=== PATIENT | female | born 2000 | race Caucasian/White ===

== ENCOUNTER 2024-05-17 16:30 | Observation (INO) | payer OTHER ==
[2024-05-17 14:37] LABS: Appearance Cloudy (Clear); Bilirubin Moderate (Negative); Blood Negative (Negative); Glucose, Urine Negative (Negative); Ketones 80 (Negative); Leukocyte Esterase Negative (Negative); Nitrite Negative (Negative); Ph 5.5 (4.6-8.0); Protein,Urine Dip 100 (Negative); Specific Gravity >=1.030 (1.005-1.030)
--- NOTE | 2024-05-17 14:37 | ERPHSYRPT ---
- History of Present Illness Time Seen by Provider: 05/17/24 14:24 Source: patient Exam Limitations: no limitations Patient Subjective Stated Complaint: C/O right sided abdominal pain with N/V and diarrhea for 3 days Triage Nursing Assessment: Patient ambulated back to ER. Patient states she already gave a urine specimen in the [facility] prior to coming to the ER today so she is unable to give a sample now. Lab phoned to send ER the results. P atient is alert and oriented. No SOB. Skin tone normal. ADIA WNL. Physician History: Patient here with right lower quadrant pain. Has been going on for 2 days. No falls or trauma. Patient's does have COVID. No fever no chills here. Patient is taking PO well. Same number of urinations and defecations. The patient has no signs of altered mental status, nuchal rigidity, signs of meningitis. The patient is up-to-date on all vaccinations. She has not tried thing to make it better or worse. Allergies/Adverse Reactions: No Known Drug Allergies Allergy (Verified 05/17/24 14:17) Home Medications: Enalapril Maleate [Vasotec] 5 mg PO HS 05/17/24 [History] Fluoxetine HCl [Prozac] 20 mg PO HS 05/17/24 [History] Norgestimate-Ethinyl Estradiol [Tri-Estarylla Tablet] 1 tab PO HS 05/17/24 [History] Tirzepatide [Zepbound] 7.5 mg SQ WEEKLY 05/17/24 [History] Hx Tetanus, Diphtheria Vaccination/Date Given: Yes Hx Influenza Vaccination/Date Given: Yes Immunizations Up to Date: Yes Travel Risk - International Travel Have you traveled outside of the country in past 3 weeks: No - Emerging Infectious Disease Are you exhibiting symptoms associated with any current EIDs: Yes Symptoms: Diarrhea, Vomitting Comment: at home + for COVID - Past Medical History Pertinent Past Medical History: Yes Cardiac History: Hypertension GI Medical History: Gallbladder Disease Psycho-Social History: Depression - Past Surgical History Past Surgical History: Yes Gastrointestinal: Cholecystectomy Other Surgical History: wisdom teeth - Female History Hx Last Menstrual Period: One month; due to start in 3 days Hx Now: No - Social History Smoking Status: Never smoker Exposure to second hand smoke: No Drug Use: none - Social Determinants of Health Will the patient participate in the screening: Yes Do you worry about a steady place to live?: No Do you have any problems with any of the following?: No known problems In the past 12 months,have you had to go without utilities?: No Transportation Issues: No Has anyone in your support network made you feel unsafe?: No Have you or anyone in your house had to go without enough: No - Nursing Vital Signs Nursing Vital Signs: Initial Vital Signs Temperature 97.6 F 05/17/24 14:20 Pulse Rate 104 H 05/17/24 14:20 Respiratory Rate 24 05/17/24 14:20 Blood Pressure 173/97 05/17/24 14:20 O2 Sat by Pulse Oximetry 100 05/17/24 14:20 Pain Scale Pain Intensity 2 - Physical Exam SpO2: 100 Comments: 05/17/24 14:36 Review of Systems Constitutional: Negative for fever. HENT: Negative for congestion. Respiratory: Negative for shortness of breath. Cardiovascular: Negative for chest pain. Gastrointestinal: Abdominal pain, nausea, vomiting Genitourinary: Negative for dysuria. Musculoskeletal: Negative for back pain. Skin: Negative for rash. Neurological: Negative for headaches. Psychiatric/Behavioral: Negative for behavioral problems. All other systems reviewed and are negative. Physical Exam Vitals signs and nursing note reviewed. Constitutional: Appearance: Patient is well-developed. HENT: Head: Normocephalic and atraumatic. Eyes: Conjunctiva/sclera: Conjunctivae normal. Neck: Musculoskeletal: Normal range of motion. Trachea: No tracheal deviation. Cardiovascular: Rate and Rhythm: Normal rate. Pulmonary: Effort: Pulmonary effort is normal. No respiratory distress. Abdominal: Palpations: Abdomen is soft. Patient has tenderness diffusely without rebound or guarding, specifically worse in the right lower quadrant Musculoskeletal: General: No deformity. Skin: General: Skin is warm and dry. Neurological/ Psychiatric: Mental Status: Mental status, behavior, interaction with environment is appropriate for patient's age and condition - Course Nursing assessment & vital signs reviewed: Yes Ordered Tests: Active Orders 24 hr Category Date Time Status Call Admit Doctor for Orders ON ADMISSION Care 05/17/24 16:06 Active Code Status Order ROUTINE Care 05/17/24 16:06 Active IV Insertion STAT Care 05/17/24 14:[address] in Observation ROUTINE Care 05/17/24 16:06 Active NPO Diet 05/17/24 16:06 Active ABDOMEN AND PELVIS W CONTRAST [CT] Stat Exams 05/17/24 14:33 Completed CBC W DIFF Stat Lab 05/17/24 14:49 Completed CMP Stat Lab 05/17/24 14:49 Completed HCG QUALITATIVE, URINE Stat Lab 05/17/24 14:30 Completed LIPASE Stat Lab 05/17/24 14:49 Completed UA W/RFX UR CULTURE Stat Lab 05/17/24 14:31 Completed Medication Summary Discontinued Medications Generic Name Dose Route Start Last Admin Trade Name Ino PRN Reason Stop Dose Admin Acetaminophen 975 mg 05/17/24 14:33 05/17/24 14:41 Acetaminophen 325 Mg Tablet PO 05/17/24 14:34 975 mg STAT ONE Administration Acetaminophen Confirm 05/17/24 14:36 Acetaminophen 325 Mg Tablet Administered 05/17/24 14:37 Dose 975 mg .ROUTE .STK-MED ONE Bupivacaine HCl Confirm 05/17/24 16:04 Bupivacaine Hcl 2.5 Mg/Ml 10 Ml Administered 05/17/24 16:05 Dose 10 ml .ROUTE .STK-MED ONE Sodium Chloride 1,000 mls @ 999 mls/hr 05/17/24 14:33 05/17/24 15:43 Sodium Chloride 0.9% 1000 Ml IV 05/17/24 15:33 Infused .Q1H1M STA Infusion Sodium Chloride Confirm 05/17/24 14:36 Sodium Chloride 0.9% 1000 Ml Administered 05/17/24 14:37 Dose 1,000 mls @ ud .ROUTE .STK-MED ONE Piperacillin Sod/Tazobactam 100 mls @ 200 mls/hr 05/17/24 15:24 05/17/24 15:28 Sod 4.5 gm/ Sodium Chloride IV 05/17/24 15:53 200 mls/hr STAT ONE Administration Sodium Chloride Confirm 05/17/24 15:28 Sodium Chloride 100ml Mini-Bag Plus Administered 05/17/24 15:29 Dose 100 mls @ ud IV .STK-MED ONE Ketorolac Tromethamine 30 mg 05/17/24 14:33 05/17/24 14:41 Ketorolac Tromethamine 30 Mg/Ml Inj IV 05/17/24 14:34 30 mg STAT ONE Administration Ketorolac Tromethamine Confirm 05/17/24 14:36 Ketorolac Tromethamine 30 Mg/Ml Inj Administered 05/17/24 14:37 Dose 30 mg .ROUTE .STK-MED ONE Ondansetron HCl 4 mg 05/17/24 14:33 05/17/24 14:40 Ondansetron Hcl 4 Mg/2 Ml Vial IV 05/17/24 14:34 4 mg STAT ONE Administration Ondansetron HCl Confirm 05/17/24 14:36 Ondansetron Hcl 4 Mg/2 Ml Vial Administered 05/17/24 14:37 Dose 4 mg .ROUTE .STK-MED ONE Piperacillin Sod/Tazobactam Sod Confirm 05/17/24 15:28 Piperacillin/Tazobactam Sodium 4.5 Gm Vial Administered 05/17/24 15:29 Dose 4.5 gm IV .STK-MED ONE Lab/Rad Data: Laboratory Result Diagrams 05/17/24 14:49 05/17/24 14:49 Laboratory Results 05/17/24 05/17/24 05/17/24 Range/Units 14:49 14:49 14:49 WBC 9.7 (3.98-10.04) x10^3/uL RBC 4.91 (3.93-5.22) x10^6/uL Hgb 13.8 (11.2-15.7) g/dL Hct 41.5 (34.1-44.9) % MCV 84.5 (79.4-94.8) fL MCH 28.1 (25.6-32.2) pg MCHC 33.3 (32.2-35.5) g/dL RDW 13.0 (11.7-14.4) % Plt Count 266 (182-369) x10^3/uL MPV 11.0 (9.4-12.3) fL Gran % 77.7 H (34.0-71.1) % Immature Gran % (Auto) 0.2 (0.001-0.429) % Nucleat RBC Rel Count 0.0 (0.00-0.2) % Eos # (Auto) 0.04 (0.04-0.36) x10^3/uL Immature Gran # (Auto) 0.02 (0.001-0.031) x10^3u/L Absolute Lymphs (auto) 1.70 (1.18-3.74) x10^3/uL Absolute Monos (auto) 0.36 (0.24-0.86) x10^3/uL Absolute Nucleated RBC 0.00 (0.00-0.012) x10^3u/L Lymphocytes % 17.6 L (19.3-51.7) % Monocytes % 3.7 L (4.7-12.5) % Eosinophils % 0.4 L (0.7-5.8) % Basophils % 0.4 (0.1-1.2) % Absolute Granulocytes 7.52 H (1.56-6.13) x10^3/uL Basophils # 0.04 (0.01-0.08) x10^3/uL Sodium 134 L (135-145) mmol/L Potassium 3.6 (3.5-5.1) mmol/L Chloride 102 (98-107) mmol/L Carbon Dioxide 19 L (22-30) mmol/L Anion Gap 15.9 H (5-15) MEQ/L BUN 14 (7-17) mg/dL Creatinine 0.88 (0.52-1.04) mg/dL Estimated GFR 94.1 ML/MIN Glucose 69 L (74-106) mg/dL Calcium 8.8 (8.4-10.2) mg/dL Total Bilirubin 0.70 (0.2-1.3) mg/dL AST 33 (14-36) U/L ALT 37 H (0-35) U/L Alkaline Phosphatase 83 (38-126) U/L Serum Total Protein 7.1 (6.3-8.2) g/dL Albumin 4.0 (3.5-5.0) g/dL Lipase 82 (23-300) U/L Urine Color (Yellow) Urine Appearance (Clear) Urine pH (4.6-8.0) Ur Specific Kiefer (1.005-1.030) Urine Protein (Negative) Urine Glucose (UA) (Negative) mg/dL Urine Ketones (Negative) Urine Blood (Negative) Urine Nitrite (Negative) Urine Bilirubin (Negative) Urine Urobilinogen (0.2) mg/dL Ur Leukocyte Esterase (Negative) U Hyaline Cast (Auto) (0-2) /LPF Urine Microscopic RBC (0-5) /HPF Urine Microscopic WBC (0-5) /HPF Ur Epithelial Cells (None Seen) /HPF Urine Bacteria (None Seen) /HPF Urine Culture Reflexed (NO) Urine HCG, Qual (NEGATIVE) Influenza Type A Ag NEGATIVE (NEGATIVE) Influenza Type B Ag NEGATIVE (NEGATIVE) RSV (PCR) NEGATIVE (NEGATIVE) SARS-CoV-2 (PCR) NEGATIVE (NEGATIVE) 05/17/24 05/17/24 Range/Units 14:31 14:30 WBC (3.98-10.04) x10^3/uL RBC (3.93-5.22) x10^6/uL Hgb (11.2-15.7) g/dL Hct (34.1-44.9) % MCV (79.4-94.8) fL MCH (25.6-32.2) pg MCHC (32.2-35.5) g/dL RDW (11.7-14.4) % Plt Count (182-369) x10^3/uL MPV (9.4-12.3) fL Gran % (34.0-71.1) % Immature Gran % (Auto) (0.001-0.429) % Nucleat RBC Rel Count (0.00-0.2) % Eos # (Auto) (0.04-0.36) x10^3/uL Immature Gran # (Auto) (0.001-0.031) x10^3u/L Absolute Lymphs (auto) (1.18-3.74) x10^3/uL Absolute Monos (auto) (0.24-0.86) x10^3/uL Absolute Nucleated RBC (0.00-0.012) x10^3u/L Lymphocytes % (19.3-51.7) % Monocytes % (4.7-12.5) % Eosinophils % (0.7-5.8) % Basophils % (0.1-1.2) % Absolute Granulocytes (1.56-6.13) x10^3/uL Basophils # (0.01-0.08) x10^3/uL Sodium (135-145) mmol/L Potassium (3.5-5.1) mmol/L Chloride (98-107) mmol/L Carbon Dioxide (22-30) mmol/L Anion Gap (5-15) MEQ/L BUN (7-17) mg/dL Creatinine (0.52-1.04) mg/dL Estimated GFR ML/MIN Glucose (74-106) mg/dL Calcium (8.4-10.2) mg/dL Total Bilirubin (0.2-1.3) mg/dL AST (14-36) U/L ALT (0-35) U/L Alkaline Phosphatase (38-126) U/L Serum Total Protein (6.3-8.2) g/dL Albumin (3.5-5.0) g/dL Lipase (23-300) U/L Urine Color Dark Yellow A (Yellow) Urine Appearance Cloudy A (Clear) Urine pH 5.5 (4.6-8.0) Ur Specific Kiefer >=1.030 A (1.005-1.030) Urine Protein 100 A (Negative) Urine Glucose (UA) Negative (Negative) mg/dL Urine Ketones 80 A (Negative) Urine Blood Negative (Negative) Urine Nitrite Negative (Negative) Urine Bilirubin Moderate A (Negative) Urine Urobilinogen 1.0 A (0.2) mg/dL Ur Leukocyte Esterase Negative (Negative) U Hyaline Cast (Auto) 3-5 A (0-2) /LPF Urine Microscopic RBC 0-2 (0-5) /HPF Urine Microscopic WBC 3-5 (0-5) /HPF Ur Epithelial Cells Moderate A (None Seen) /HPF Urine Bacteria Rare A (None Seen) /HPF Urine Culture Reflexed ORDERED SEPARATELY (NO) Urine HCG, Qual NEGATIVE (NEGATIVE) Influenza Type A Ag (NEGATIVE) Influenza Type B Ag (NEGATIVE) RSV (PCR) (NEGATIVE) SARS-CoV-2 (PCR) (NEGATIVE) - Progress Progress: improved Progress Note: 05/17/24 14:37 Differential diagnosis includes kidney stone, compression fracture, infection, UTI, triple AAA - basic labs including: CBC, lipase, CMP, UA, urine - insert IV for symptom management - consider imaging: CT ab/pelvis or U/S Reevaluation Patient feels improved with medication. 05/17/24 16:13 Patient found to have acute appendicitis on CT scan. This is in line with her physical exam. I discussed over the phone with on-call general surgeon, Dr. Burris. She did request that we admit to the hospital team given patient's history of hypertension. Plan to take to the OR today. We did write for Zosyn here. Discussed over the phone with on-call hospitalist, Dr. Kaye. He did accept the patient to admission to the service. Counseled pt/family regarding: lab results, diagnosis, need for follow-up, rad results - Departure Departure Disposition: Observation Clinical Impression: Acute appendicitis Condition: Stable Critical Care Time: No Referrals: MENDY MARTIN, DESIGN/ANIMATION INSTRUCTOR [Primary Care Provider] - Follow up/PCP as directed
[2024-05-17 14:38] LABS: HCG URINE TEST NEGATIVE (NEGATIVE)
[2024-05-17] MEDS: Zofran 4 MG/2 ML VIAL IV ONE (14:40)
[2024-05-17] MEDS: Sodium Chloride 0.9% 1000 ML 1,000 ML IV STA (14:40)
[2024-05-17] MEDS: TYLENOL 325 MG PO ONE (14:41)
[2024-05-17] MEDS: TORAdol 30 mg Injection IV ONE (14:41)
[2024-05-17 14:52] LABS: ADD URINE CULTURE? ORDERED SEPARATELY (NO); Bacteria Rare /HPF (None Seen); Epithelial Cells Moderate /HPF (None Seen); RBC 0-2 /HPF (0-5)
[2024-05-17 14:57] LABS: Absolute Neutrophil Ct (ANC) 7.52 x10^3/uL (1.56-6.13); BASOPHIL % 0.4 % (0.1-1.2); Basophil (Absolute #) 0.04 x10^3/uL (0.01-0.08); Eosinophil % 0.4 % (0.7-5.8); Eosinophil (Absolute #) 0.04 x10^3/uL (0.04-0.36); Hematocrit 41.5 % (34.1-44.9); Hemoglobin 13.8 g/dL (11.2-15.7); IMMATURE GRAN # 0.02 x10^3u/L (0.001-0.031); IMMATURE GRAN % 0.2 % (0.001-0.429); Lymphocytes % 17.6 % (19.3-51.7); Mean Cell Volume 84.5 fL (79.4-94.8); Mean Corpuscular Hemoglobin 28.1 pg (25.6-32.2); Mean Corpuscular Hgb Concent. 33.3 g/dL (32.2-35.5); Monocyte (Absolute #) 0.36 x10^3/uL (0.24-0.86); Monocytes % 3.7 % (4.7-12.5); Neutrophil % 77.7 % (34.0-71.1); Platelet Count 266 x10^3/uL (182-369); Red Blood Count 4.91 x10^6/uL (3.93-5.22); White Blood Count 9.7 x10^3/uL (3.98-10.04)
--- NOTE | 2024-05-17 15:20 | XRAY ---
Indication: Right lower quadrant pain. Multiple contiguous axial images obtained through the abdomen and pelvis using 80 cc Isovue 370 contrast. Comparison: None Lung bases clear. Heart not enlarged. Noncontrasted stomach and bowel loops appear nonobstructed. Appendix demonstrates tiny intraluminal appendicoliths. Base of appendix is prominent up to 1.2 cm possibly mild/early appendicitis. Small cul-de-sac free fluid possibly from rupture/leaking cyst. Previous cholecystectomy. Both kidneys enhance and excrete with 9 mm right upper renal cyst. No free air. Remaining liver, pancreas, spleen, adrenal glands, kidneys, ureters, bladder, uterus, and aorta are unremarkable. No pathologic retroperitoneal lymphadenopathy. Osseous structures intact. Impression: 1. Appendicoliths with prominent base of appendix. Rule out mild/early appendicitis. 2. Small cul-de-sac free fluid possibly from rupture/leaking cyst. 3. Incidental right renal cyst.
[2024-05-17] MEDS: PIPERACILLIN/TAZOBACTAM 4.5 GM in Sodium Chloride 100ML MINI-BAG PLUS 100 ML IV ONE (15:28)
[2024-05-17 15:32] LABS: INFLUENZA A NEGATIVE (NEGATIVE); INFLUENZA B NEGATIVE (NEGATIVE); RESPIRATORY SYNCTIAL VIRUS NEGATIVE (NEGATIVE); SARS-CoV-2 Xpert Express NEGATIVE (NEGATIVE)
[2024-05-17 15:33] LABS: ANION GAP 15.9 MEQ/L (5-15); BILIRUBIN,TOTAL 0.7 mg/dL (0.2-1.3); Calcium 8.8 mg/dL (8.4-10.2); Creatinine 1 0.88 mg/dL (0.52-1.04); EST GLOMERULAR FILTRATION RATE 94.1 ML/MIN; Potassium 3.6 mmol/L (3.5-5.1); Total Protein 7.1 g/dL (6.3-8.2)
[~2024-05-17 16:30] MED LIST: PIPERACILLIN/TAZOBACTAM IV ONE; Sensorcaine 0.25% 10 ML ONE; Sodium Chloride 0.9% 1000 ML 1,000 ML ONE; Sodium Chloride 100ML MINI-BAG PLUS 100 ML IV ONE; TORAdol 30 mg Injection ONE; TYLENOL 325 MG ONE; Zofran 4 MG/2 ML VIAL ONE
[2024-05-17] MEDS ORDERED: OFIRMEV 100 ML IV ONE (16:47)
[2024-05-17] MEDS ORDERED: ROCURONIUM BROMIDE IV ONE (16:48)
[2024-05-17] MEDS ORDERED: Versed 2 MG/2 ML Injection ONE (16:48)
[2024-05-17] MEDS ORDERED: Zofran 4 MG/2 ML VIAL ONE (16:48)
[2024-05-17] MEDS ORDERED: SUBLIMAZE 100 MCG/2 ML ONE ×3 (16:48→18:44)
[2024-05-17] MEDS ORDERED: Decadron 4 MG INJ ONE (16:48)
[2024-05-17] MEDS ORDERED: DIPRIVAN 200 MG/20 ML IV ONE (16:48)
[2024-05-17] MEDS ORDERED: Reglan 10 MG/2 ML ONE (16:48)
[2024-05-17] MEDS ORDERED: Lactated Ringers 1,000 ML IV ONE (17:20)
[2024-05-17] MEDS ORDERED: BRIDION 200MG/2ML IV ONE (18:08)
[2024-05-17] MEDS ORDERED: TORAdol 30 mg Injection ONE (18:08)
[2024-05-17] MEDS ORDERED: Hydromorphone 1 mg/ml Injection ONE (18:57)
[2024-05-17] MEDS: NORCO 5/325 MG PO PRN (20:26)
[2024-05-17] MEDS ORDERED: Zofran 4 MG/2 ML VIAL IV PRN (20:48)
[2024-05-17] MEDS ORDERED: Docusate Sodium 100 MG PO PRN (20:48)
[2024-05-17] MEDS ORDERED: TYLENOL 325 MG PO PRN (20:48)
[2024-05-17] MEDS: MOTRIN 600 MG PO PRN (21:23)
[2024-05-17] MEDS: Prozac 20 MG PO SCH (21:24)
[2024-05-17] MEDS: ENALAPRIL MALEATE 5 MG PO SCH (21:25)
[2024-05-17] MEDS: NORGESTIMATE ETHINYL ESTRADIOL PO SCH (21:25)
--- NOTE | 2024-05-17 23:06 | PCM.HP ---
History of Present Illness - Chief Complaint Chief Complaint: acute appendicitis Date: 05/17/24 History of Present Illness: is a 23 year old female with a history of HTN who presented to the ED with right lower quadrant abdominal pain worsening over 2 days. She denied any falls or trauma, or fevers or chills. Patient's does have COVID. There was no nausea, vomiting, diarrhea, or dysuria. In the ED, the patient was found the have acute appendicitis without perforation or rupture. She received IV Zosyn and surgery was consulted. The patient underwent uncomplicated appendectomy by Dr. Burris, who asked for the patient to be admitted overnight fo r postoperative pain control and observation. The patient states that overall her pain is much improved. . - Review of Systems Constitutional: No Symptoms Eyes: No Symptoms Ears, Nose, & Throat: No Symptoms Respiratory: No Symptoms Cardiac: No Symptoms Abdominal/Gastrointestinal: Abdominal Pain Genitourinary Symptoms: No Symptoms Musculoskeletal: No Symptoms Skin: No Symptoms Neurological: No Symptoms Psychological: No Symptoms Endocrine: No Symptoms Hematologic/Lymphatic: No Symptoms Immunological/Allergic: No Symptoms All Other Systems: Reviewed and Negative Medications & Allergies Home Medications: Home Medication List Enalapril Maleate [Vasotec] 5 mg PO HS 05/17/24 [History Confirmed 05/17/24] Fluoxetine HCl [Prozac] 20 mg PO HS 05/17/24 [History Confirmed 05/17/24] Norgestimate-Ethinyl Estradiol [Tri-Estarylla Tablet] 1 tab PO HS 05/17/24 [History Confirmed 05/17/24] Tirzepatide [Zepbound] 7.5 mg SQ WEEKLY 05/17/24 [History Confirmed 05/17/24] Allergies/Adverse Reactions: Allergies Allergy/AdvReac Type Severity Reaction Status Date / Time No Known Drug Allergies Allergy Verified 05/17/24 14:17 - Past Medical History Past Medical History: Yes Cardiac History: Hypertension GI Medical History: Gallbladder Disease Pyscho-Social History: Depression - Female History Hx Last Menstrual Period: One month; due to start in 3 days Are you now?: No - Past Surgical History Past Surgical History: Yes GI Surgical History: Cholecystectomy Other Surgical History: wisdom teeth - Social History Smoking Status: Never smoker Exposure to second hand smoke: No Alcohol: None Drug Use: none - Social Determinants of Health Will the patient participate in the screening: Yes Do you worry about a steady place to live?: No Do you have any problems with any of the following?: No known problems In the past 12 months,have you had to go without utilities?: No Have you or anyone in your house had to go without enough: No Transportation Issues: No Has anyone in your support network made you feel unsafe?: No - Physical Exam Vital Signs: Vital Signs - 24 hr Temp Pulse Resp BP BP Pulse Ox 05/17/24 20:00 97.1 F 91 H 16 141/90 100 05/17/24 16:15 100 05/17/24 16:00 106 H 19 165/97 99 05/17/24 15:57 96.6 F 99 H 17 173/97 100 05/17/24 15:30 99 H 17 139/102 100 05/17/24 15:29 95 H 16 100 05/17/24 15:20 101 H 22 99 05/17/24 15:16 101 H 21 98 05/17/24 14:34 90 16 139/88 99 05/17/24 14:32 89 18 100 05/17/24 14:20 97.6 F 104 H 24 173/97 100 General Appearance: no apparent distress, alert Neurologic Exam: alert, oriented x 3, cooperative, paper cone grader II-XII nml as tested, normal mood/affect, nml cerebellar function Eye Exam: PERRL/EOMI, eyes nml inspection Ears, Nose, Throat Exam: normal ENT inspection Neck Exam: normal inspection, non-tender Respiratory Exam: normal breath sounds, lungs clear Cardiovascular Exam: regular rate/rhythm, normal heart sounds Gastrointestinal/Abdomen Exam: soft, normal bowel sounds, tenderness (RLQ tenderness appropriate for postoperative status. No peritoneal signs or rigidity) Back Exam: normal range of motion Extremity Exam: normal inspection, normal range of motion Skin Exam: normal color Results - Labs Lab/Micro Results: Lab Results-Last 24 Hours 05/17/24 05/17/24 05/17/24 Range/Units 14:30 14:31 14:49 WBC 9.7 (3.98-10.04) x10^3/uL RBC 4.91 (3.93-5.22) x10^6/uL Hgb 13.8 (11.2-15.7) g/dL Hct 41.5 (34.1-44.9) % MCV 84.5 (79.4-94.8) fL MCH 28.1 (25.6-32.2) pg MCHC 33.3 (32.2-35.5) g/dL RDW 13.0 (11.7-14.4) % Plt Count 266 (182-369) x10^3/uL MPV 11.0 (9.4-12.3) fL Gran % 77.7 H (34.0-71.1) % Immature Gran % (Auto) 0.2 (0.001-0.429) % Nucleat RBC Rel Count 0.0 (0.00-0.2) % Eos # (Auto) 0.04 (0.04-0.36) x10^3/uL Immature Gran # (Auto) 0.02 (0.001-0.031) x10^3u/L Absolute Lymphs (auto) 1.70 (1.18-3.74) x10^3/uL Absolute Monos (auto) 0.36 (0.24-0.86) x10^3/uL Absolute Nucleated RBC 0.00 (0.00-0.012) x10^3u/L Lymphocytes % 17.6 L (19.3-51.7) % Monocytes % 3.7 L (4.7-12.5) % Eosinophils % 0.4 L (0.7-5.8) % Basophils % 0.4 (0.1-1.2) % Absolute Granulocytes 7.52 H (1.56-6.13) x10^3/uL Basophils # 0.04 (0.01-0.08) x10^3/uL Sodium (135-145) mmol/L Potassium (3.5-5.1) mmol/L Chloride (98-107) mmol/L Carbon Dioxide (22-30) mmol/L Anion Gap (5-15) MEQ/L BUN (7-17) mg/dL Creatinine (0.52-1.04) mg/dL Estimated GFR ML/MIN Glucose (74-106) mg/dL Calcium (8.4-10.2) mg/dL Total Bilirubin (0.2-1.3) mg/dL AST (14-36) U/L ALT (0-35) U/L Alkaline Phosphatase (38-126) U/L Serum Total Protein (6.3-8.2) g/dL Albumin (3.5-5.0) g/dL Lipase (23-300) U/L Urine Color Dark Yellow A (Yellow) Urine Appearance Cloudy A (Clear) Urine pH 5.5 (4.6-8.0) Ur Specific Fleming >=1.030 A (1.005-1.030) Urine Protein 100 A (Negative) Urine Glucose (UA) Negative (Negative) mg/dL Urine Ketones 80 A (Negative) Urine Blood Negative (Negative) Urine Nitrite Negative (Negative) Urine Bilirubin Moderate A (Negative) Urine Urobilinogen 1.0 A (0.2) mg/dL Ur Leukocyte Esterase Negative (Negative) U Hyaline Cast (Auto) 3-5 A (0-2) /LPF Urine Microscopic RBC 0-2 (0-5) /HPF Urine Microscopic WBC 3-5 (0-5) /HPF Ur Epithelial Cells Moderate A (None Seen) /HPF Urine Bacteria Rare A (None Seen) /HPF Urine Culture Reflexed ORDERED SEPARATELY (NO) Urine HCG, Qual NEGATIVE (NEGATIVE) Influenza Type A Ag (NEGATIVE) Influenza Type B Ag (NEGATIVE) RSV (PCR) (NEGATIVE) SARS-CoV-2 (PCR) (NEGATIVE) 05/17/24 05/17/24 Range/Units 14:49 14:49 WBC (3.98-10.04) x10^3/uL RBC (3.93-5.22) x10^6/uL Hgb (11.2-15.7) g/dL Hct (34.1-44.9) % MCV (79.4-94.8) fL MCH (25.6-32.2) pg MCHC (32.2-35.5) g/dL RDW (11.7-14.4) % Plt Count (182-369) x10^3/uL MPV (9.4-12.3) fL Gran % (34.0-71.1) % Immature Gran % (Auto) (0.001-0.429) % Nucleat RBC Rel Count (0.00-0.2) % Eos # (Auto) (0.04-0.36) x10^3/uL Immature Gran # (Auto) (0.001-0.031) x10^3u/L Absolute Lymphs (auto) (1.18-3.74) x10^3/uL Absolute Monos (auto) (0.24-0.86) x10^3/uL Absolute Nucleated RBC (0.00-0.012) x10^3u/L Lymphocytes % (19.3-51.7) % Monocytes % (4.7-12.5) % Eosinophils % (0.7-5.8) % Basophils % (0.1-1.2) % Absolute Granulocytes (1.56-6.13) x10^3/uL Basophils # (0.01-0.08) x10^3/uL Sodium 134 L (135-145) mmol/L Potassium 3.6 (3.5-5.1) mmol/L Chloride 102 (98-107) mmol/L Carbon Dioxide 19 L (22-30) mmol/L Anion Gap 15.9 H (5-15) MEQ/L BUN 14 (7-17) mg/dL Creatinine 0.88 (0.52-1.04) mg/dL Estimated GFR 94.1 ML/MIN Glucose 69 L (74-106) mg/dL Calcium 8.8 (8.4-10.2) mg/dL Total Bilirubin 0.70 (0.2-1.3) mg/dL AST 33 (14-36) U/L ALT 37 H (0-35) U/L Alkaline Phosphatase 83 (38-126) U/L Serum Total Protein 7.1 (6.3-8.2) g/dL Albumin 4.0 (3.5-5.0) g/dL Lipase 82 (23-300) U/L Urine Color (Yellow) Urine Appearance (Clear) Urine pH (4.6-8.0) Ur Specific Fleming (1.005-1.030) Urine Protein (Negative) Urine Glucose (UA) (Negative) mg/dL Urine Ketones (Negative) Urine Blood (Negative) Urine Nitrite (Negative) Urine Bilirubin (Negative) Urine Urobilinogen (0.2) mg/dL Ur Leukocyte Esterase (Negative) U Hyaline Cast (Auto) (0-2) /LPF Urine Microscopic RBC (0-5) /HPF Urine Microscopic WBC (0-5) /HPF Ur Epithelial Cells (None Seen) /HPF Urine Bacteria (None Seen) /HPF Urine Culture Reflexed (NO) Urine HCG, Qual (NEGATIVE) Influenza Type A Ag NEGATIVE (NEGATIVE) Influenza Type B Ag NEGATIVE (NEGATIVE) RSV (PCR) NEGATIVE (NEGATIVE) SARS-CoV-2 (PCR) NEGATIVE (NEGATIVE) - Radiology Impressions Radiology Exams & Impressions: Radiology Procedures Category Date Time Status ABDOMEN AND PELVIS W CONTRAST [CT] Stat Exams 05/17/24 14:33 Completed Assessment/Plan (1) Acute appendicitis Current Visit: Yes Status: Acute Assessment & Plan: Continue postoperative analgesia. Surgery clearance for discharge will determine length of stay. Code(s): K35.80 - UNSPECIFIED ACUTE APPENDICITIS (2) Right lower quadrant abdominal pain Current Visit: Yes Status: Acute Assessment & Plan: Analgesia (3) Essential hypertension Current Visit: Yes Status: Acute Assessment & Plan: Continue current regimen and monitor BP trend. Code(s): I10 - ESSENTIAL (PRIMARY) HYPERTENSION Telemedicine Encounter - Telemedicine Encounter Telemedicine Encounter: "The entirety of this encounter was performed via Telemedicine" This visit was performed using real-time audio and video connection between my location and thepatients locationwith the assistance of a surrogateat the patients location. Written or verbal consent was obtained from the patient/guardian to perform this visit [facility] technology. Any patient questions regarding the telemedicine interaction were answered.
[2024-05-18 05:29] LABS: BASOPHIL % 0.1 % (0.1-1.2); Basophil (Absolute #) 0.01 x10^3/uL (0.01-0.08); Eosinophil % 0.1 % (0.7-5.8); Eosinophil (Absolute #) 0.01 x10^3/uL (0.04-0.36); Hematocrit 39.5 % (34.1-44.9); Hemoglobin 12.9 g/dL (11.2-15.7); IMMATURE GRAN # 0.02 x10^3u/L (0.001-0.031); IMMATURE GRAN % 0.2 % (0.001-0.429); Lymphocyte (Absolute #) 0.72 x10^3/uL (1.18-3.74); Lymphocytes % 8.6 % (19.3-51.7); Mean Cell Volume 85.1 fL (79.4-94.8); Mean Corpuscular Hemoglobin 27.8 pg (25.6-32.2); Mean Corpuscular Hgb Concent. 32.7 g/dL (32.2-35.5); Mean Platelet Volume 11.5 fL (9.4-12.3); Monocytes % 1.2 % (4.7-12.5); Neutrophil % 89.8 % (34.0-71.1); Platelet Count 270 x10^3/uL (182-369); Red Blood Count 4.64 x10^6/uL (3.93-5.22); Red Cell Distribution Width 13.2 % (11.7-14.4); White Blood Count 8.4 x10^3/uL (3.98-10.04)
[2024-05-18 05:35] LABS: ANION GAP 16.1 MEQ/L (5-15); Calcium 8.8 mg/dL (8.4-10.2); Creatinine 1 0.77 mg/dL (0.52-1.04); EST GLOMERULAR FILTRATION RATE 110.4 ML/MIN; Potassium 3.8 mmol/L (3.5-5.1)
[2024-05-18] MEDS ORDERED: MEDICATION INTERVENTION MC SCH (08:00)
[2024-05-18 08:02] VITALS: BP 145/87; PULSE 96; RESP 17; TEMP 97.3; O2SAT 98
--- NOTE | 2024-05-18 09:48 | PCM.DS ---
Discharge Summary Date of Admission: 05/17/24 23:00 Date of Discharge: 05/18/24 Admitting Physician: SUSAN BOLAÑOS MD Consults: Consults on Case 05/17/24 21:51 Consult Surgery ROUTINE Primary Care Provider: MENDY MARTIN NP Allergies Allergies No Known Drug Allergies Allergy (Verified 05/17/24 14:17) Hospital Summary - Hospital Course Hospital Course: is a 23 year old female with a history of HTN. She presented to the ED on 05/17/24 with right lower quadrant abdominal pain worsening over 2 days. She denied any falls or trauma, or fevers or chills. Patient's does have CO VID. There was no nausea, vomiting, diarrhea, or dysuria. In the ED, the patient was found the have acute appendicitis without perforation or rupture. She received IV Zosyn and surgery was consulted. The patient underwent uncomplicated appendectomy by Dr. Burris, who asked for the patient to be admi tted overnight for postoperative pain control and observation. The patient states that overall her pain is much improved. She is ready to o home today. Will d/c with pain and nausea meds PRN. - Vitals & Intake/Output Vital Signs: Vital Signs Temperature 97.3 F 05/18/24 07:59 Pulse Rate 96 H 05/18/24 07:59 Respiratory Rate 17 05/18/24 07:59 Blood Pressure 145/87 05/18/24 07:59 O2 Sat by Pulse Oximetry 98 05/18/24 07:59 Intake & Output: Intake & Output 05/15/24 05/16/24 05/17/24 05/18/24 11:59 11:59 11:59 11:59 Intake Total 120 Balance 120 Weight 90.5 kg - Lab Result Diagrams: 05/18/24 04:25 05/18/24 04:25 Lab Results-Last 24 Hrs: Lab Results-Last 24 Hours 05/17/24 05/17/24 05/17/24 Range/Units 14:30 14:31 14:49 WBC 9.7 (3.98-10.04) x10^3/uL RBC 4.91 (3.93-5.22) x10^6/uL Hgb 13.8 (11.2-15.7) g/dL Hct 41.5 (34.1-44.9) % MCV 84.5 (79.4-94.8) fL MCH 28.1 (25.6-32.2) pg MCHC 33.3 (32.2-35.5) g/dL RDW 13.0 (11.7-14.4) % Plt Count 266 (182-369) x10^3/uL MPV 11.0 (9.4-12.3) fL Gran % 77.7 H (34.0-71.1) % Immature Gran % (Auto) 0.2 (0.001-0.429) % Nucleat RBC Rel Count 0.0 (0.00-0.2) % Eos # (Auto) 0.04 (0.04-0.36) x10^3/uL Immature Gran # (Auto) 0.02 (0.001-0.031) x10^3u/L Absolute Lymphs (auto) 1.70 (1.18-3.74) x10^3/uL Absolute Monos (auto) 0.36 (0.24-0.86) x10^3/uL Absolute Nucleated RBC 0.00 (0.00-0.012) x10^3u/L Lymphocytes % 17.6 L (19.3-51.7) % Monocytes % 3.7 L (4.7-12.5) % Eosinophils % 0.4 L (0.7-5.8) % Basophils % 0.4 (0.1-1.2) % Absolute Granulocytes 7.52 H (1.56-6.13) x10^3/uL Basophils # 0.04 (0.01-0.08) x10^3/uL Sodium (135-145) mmol/L Potassium (3.5-5.1) mmol/L Chloride (98-107) mmol/L Carbon Dioxide (22-30) mmol/L Anion Gap (5-15) MEQ/L BUN (7-17) mg/dL Creatinine (0.52-1.04) mg/dL Estimated GFR ML/MIN Glucose (74-106) mg/dL Calcium (8.4-10.2) mg/dL Total Bilirubin (0.2-1.3) mg/dL AST (14-36) U/L ALT (0-35) U/L Alkaline Phosphatase (38-126) U/L Serum Total Protein (6.3-8.2) g/dL Albumin (3.5-5.0) g/dL Lipase (23-300) U/L Urine Color Dark Yellow A (Yellow) Urine Appearance Cloudy A (Clear) Urine pH 5.5 (4.6-8.0) Ur Specific [place] >=1.030 A (1.005-1.030) Urine Protein 100 A (Negative) Urine Glucose (UA) Negative (Negative) mg/dL Urine Ketones 80 A (Negative) Urine Blood Negative (Negative) Urine Nitrite Negative (Negative) Urine Bilirubin Moderate A (Negative) Urine Urobilinogen 1.0 A (0.2) mg/dL Ur Leukocyte Esterase Negative (Negative) U Hyaline Cast (Auto) 3-5 A (0-2) /LPF Urine Microscopic RBC 0-2 (0-5) /HPF Urine Microscopic WBC 3-5 (0-5) /HPF Ur Epithelial Cells Moderate A (None Seen) /HPF Urine Bacteria Rare A (None Seen) /HPF Urine Culture Reflexed ORDERED SEPARATELY (NO) Urine HCG, Qual NEGATIVE (NEGATIVE) Influenza Type A Ag (NEGATIVE) Influenza Type B Ag (NEGATIVE) RSV (PCR) (NEGATIVE) SARS-CoV-2 (PCR) (NEGATIVE) 05/17/24 05/17/24 05/18/24 Range/Units 14:49 14:49 04:25 WBC 8.4 (3.98-10.04) x10^3/uL RBC 4.64 (3.93-5.22) x10^6/uL Hgb 12.9 (11.2-15.7) g/dL Hct 39.5 (34.1-44.9) % MCV 85.1 (79.4-94.8) fL MCH 27.8 (25.6-32.2) pg MCHC 32.7 (32.2-35.5) g/dL RDW 13.2 (11.7-14.4) % Plt Count 270 (182-369) x10^3/uL MPV 11.5 (9.4-12.3) fL Gran % 89.8 H (34.0-71.1) % Immature Gran % (Auto) 0.2 (0.001-0.429) % Nucleat RBC Rel Count 0.0 (0.00-0.2) % Eos # (Auto) 0.01 L (0.04-0.36) x10^3/uL Immature Gran # (Auto) 0.02 (0.001-0.031) x10^3u/L Absolute Lymphs (auto) 0.72 L (1.18-3.74) x10^3/uL Absolute Monos (auto) 0.10 L (0.24-0.86) x10^3/uL Absolute Nucleated RBC 0.00 (0.00-0.012) x10^3u/L Lymphocytes % 8.6 L (19.3-51.7) % Monocytes % 1.2 L (4.7-12.5) % Eosinophils % 0.1 L (0.7-5.8) % Basophils % 0.1 (0.1-1.2) % Absolute Granulocytes 7.50 H (1.56-6.13) x10^3/uL Basophils # 0.01 (0.01-0.08) x10^3/uL Sodium 134 L (135-145) mmol/L Potassium 3.6 (3.5-5.1) mmol/L Chloride 102 (98-107) mmol/L Carbon Dioxide 19 L (22-30) mmol/L Anion Gap 15.9 H (5-15) MEQ/L BUN 14 (7-17) mg/dL Creatinine 0.88 (0.52-1.04) mg/dL Estimated GFR 94.1 ML/MIN Glucose 69 L (74-106) mg/dL Calcium 8.8 (8.4-10.2) mg/dL Total Bilirubin 0.70 (0.2-1.3) mg/dL AST 33 (14-36) U/L ALT 37 H (0-35) U/L Alkaline Phosphatase 83 (38-126) U/L Serum Total Protein 7.1 (6.3-8.2) g/dL Albumin 4.0 (3.5-5.0) g/dL Lipase 82 (23-300) U/L Urine Color (Yellow) Urine Appearance (Clear) Urine pH (4.6-8.0) Ur Specific [place] (1.005-1.030) Urine Protein (Negative) Urine Glucose (UA) (Negative) mg/dL Urine Ketones (Negative) Urine Blood (Negative) Urine Nitrite (Negative) Urine Bilirubin (Negative) Urine Urobilinogen (0.2) mg/dL Ur Leukocyte Esterase (Negative) U Hyaline Cast (Auto) (0-2) /LPF Urine Microscopic RBC (0-5) /HPF Urine Microscopic WBC (0-5) /HPF Ur Epithelial Cells (None Seen) /HPF Urine Bacteria (None Seen) /HPF Urine Culture Reflexed (NO) Urine HCG, Qual (NEGATIVE) Influenza Type A Ag NEGATIVE (NEGATIVE) Influenza Type B Ag NEGATIVE (NEGATIVE) RSV (PCR) NEGATIVE (NEGATIVE) SARS-CoV-2 (PCR) NEGATIVE (NEGATIVE) 05/18/24 Range/Units 04:25 WBC (3.98-10.04) x10^3/uL RBC (3.93-5.22) x10^6/uL Hgb (11.2-15.7) g/dL Hct (34.1-44.9) % MCV (79.4-94.8) fL MCH (25.6-32.2) pg MCHC (32.2-35.5) g/dL RDW (11.7-14.4) % Plt Count (182-369) x10^3/uL MPV (9.4-12.3) fL Gran % (34.0-71.1) % Immature Gran % (Auto) (0.001-0.429) % Nucleat RBC Rel Count (0.00-0.2) % Eos # (Auto) (0.04-0.36) x10^3/uL Immature Gran # (Auto) (0.001-0.031) x10^3u/L Absolute Lymphs (auto) (1.18-3.74) x10^3/uL Absolute Monos (auto) (0.24-0.86) x10^3/uL Absolute Nucleated RBC (0.00-0.012) x10^3u/L Lymphocytes % (19.3-51.7) % Monocytes % (4.7-12.5) % Eosinophils % (0.7-5.8) % Basophils % (0.1-1.2) % Absolute Granulocytes (1.56-6.13) x10^3/uL Basophils # (0.01-0.08) x10^3/uL Sodium 134 L (135-145) mmol/L Potassium 3.8 (3.5-5.1) mmol/L Chloride 103 (98-107) mmol/L Carbon Dioxide 18 L (22-30) mmol/L Anion Gap 16.1 H (5-15) MEQ/L BUN 9 (7-17) mg/dL Creatinine 0.77 (0.52-1.04) mg/dL Estimated GFR 110.4 ML/MIN Glucose 115 H (74-106) mg/dL Calcium 8.8 (8.4-10.2) mg/dL Total Bilirubin (0.2-1.3) mg/dL AST (14-36) U/L ALT (0-35) U/L Alkaline Phosphatase (38-126) U/L Serum Total Protein (6.3-8.2) g/dL Albumin (3.5-5.0) g/dL Lipase (23-300) U/L Urine Color (Yellow) Urine Appearance (Clear) Urine pH (4.6-8.0) Ur Specific [place] (1.005-1.030) Urine Protein (Negative) Urine Glucose (UA) (Negative) mg/dL Urine Ketones (Negative) Urine Blood (Negative) Urine Nitrite (Negative) Urine Bilirubin (Negative) Urine Urobilinogen (0.2) mg/dL Ur Leukocyte Esterase (Negative) U Hyaline Cast (Auto) (0-2) /LPF Urine Microscopic RBC (0-5) /HPF Urine Microscopic WBC (0-5) /HPF Ur Epithelial Cells (None Seen) /HPF Urine Bacteria (None Seen) /HPF Urine Culture Reflexed (NO) Urine HCG, Qual (NEGATIVE) Influenza Type A Ag (NEGATIVE) Influenza Type B Ag (NEGATIVE) RSV (PCR) (NEGATIVE) SARS-CoV-2 (PCR) (NEGATIVE) - Radiology Exams Ordered Rad Exams-Entire Visit: Radiology Procedures Category Date Time Status ABDOMEN AND PELVIS W CONTRAST [CT] Stat Exams 05/17/24 14:33 Completed Discharge Exam General Appearance: no apparent distress, alert Neurologic Exam: alert, oriented x 3, cooperative, normal mood/affect, nml cerebellar function, sensation nml, No motor deficits Eye Exam: PERRL, EOMI, eyes nml inspection Ears, Nose, Throat Exam: normal ENT inspection, pharynx normal, moist mucous membranes Neck Exam: normal inspection, non-tender, supple, full range of motion Respiratory Exam: normal breath sounds, lungs clear, No respiratory distress Cardiovascular Exam: regular rate/rhythm, normal heart sounds Gastrointestinal/Abdomen Exam: soft, tenderness, No mass Pelvic Exam: deferred Rectal Exam: deferred Back Exam: normal inspection, normal range of motion, No CVA tenderness, No vertebral tenderness Extremity Exam: normal inspection, normal range of motion Skin Exam: normal color, warm, dry Final Diagnosis/Problem List - Final Discharge Diagnosis/Problem (1) Acute appendicitis Current Visit: Yes Status: Acute Assessment & Plan: -Continue postoperative analgesia. - Surgery clearance for discharge. - ok to d/c per surgery Code(s): K35.80 - UNSPECIFIED ACUTE APPENDICITIS (2) Essential hypertension Current Visit: Yes Status: Acute Assessment & Plan: - Continue current regimen and monitor BP trend. Code(s): I10 - ESSENTIAL (PRIMARY) HYPERTENSION (3) Right lower quadrant abdominal pain Current Visit: Yes Status: Acute Assessment & Plan: - Analgesia - Discharge Discharge Date: 05/18/24 Disposition: Home, Self-Care Condition: Stable Prescriptions: New Ondansetron ODT 4 MG [Zofran Odt 4 mg] 4 mg PO Q6H PRN PRN #10 tablet PRN Reason: Vomiting Hydrocodone/Acetaminophen [Hydrocodone-Acetamin 5-325 mg] 1 tab PO Q6HPRN PRN 3 Days #12 tablet MDD 4 PRN Reason: Pain Continue Norgestimate-Ethinyl Estradiol [Tri-Estarylla Tablet] 1 tab PO HS Enalapril Maleate [Vasotec] 5 mg PO HS Tirzepatide [Zepbound] 7.5 mg SQ WEEKLY Fluoxetine HCl [Prozac] 20 mg PO HS Instructions: Appendectomy - Discharge instructions Follow up with: FATOUMATA BURRIS MD [ACTIVE STAFF] - 05/27/24 11:20 am (AT [facility] )
[2024-05-18] MEDS ORDERED: TYLENOL 325 MG PO SCH (12:00)
[2024-05-18] MEDS ORDERED: Zestril 10 MG PO SCH (22:00)
--- NOTE | 2024-05-20 11:40 | OP ---
SURGERY DATE/TIME: 05/17/2024 PREOPERATIVE DIAGNOSIS: Appendicitis. POSTOPERATIVE DIAGNOSIS: Appendicitis, ruptured left ovarian cyst. PROCEDURE: Laparoscopic appendectomy. SURGEON: Mitra Burris MD ANESTHESIA: General. ESTIMATED BLOOD LOSS: 5 mL. SPECIMEN: Appendix. PATIENT CONDITION: Stable. FINDINGS: Mildly inflamed appendix, erythematous left ovary, possible left ovarian cyst with hemorrhagic-appearing/serosanguineous fluid surrounding the ovary. INFECTION PRESENT AT TIME OF SURGERY: No. WOUND CLASSIFICATION: Clean - contaminated. DESCRIPTION OF PROCEDURE AND FINDINGS: The patient was brought to the operating room. General anesthesia was induced, and the patient was routinely positioned, prepped and draped, time-out performed according to institutional protocol. The patient received preoperative antibiotic. A Veress needle was placed in the left upper quadrant and the abdomen was insufflated. A 5 mm Optiview trocar was placed above the umbilicus and the abdomen was entered under direct visualization. The Veress needle was observed to be in the peritoneal space without evidence of injury to any surrounding structure. A 12 mm left lower quadrant trocar was placed. A 5 mm suprapubic trocar was placed. The patient was positioned in Trendelenburg, right side up. The appendix was mildly inflamed. The mesentery was taken with the LigaSure and carried down to the base of the appendix. The base of the appendix was isolated. The appendix was then taken with a blue load Endo JEWELL stapler. The staple line appeared hemostatic. Residual blood was suctioned and hemostasis was appropriate. There appeared to be some serous fluid within the pelvis, and in the left lower quadrant near the ovary there was also some serosanguineous fluid. The left ovary was observed and appeared to be mildly inflamed. A picture was taken. The appendix was removed using an Endo Catch bag. The 12 trocar site was closed with 0 Vicryl interrupted suture passer. The abdomen was desufflated. Marcaine was injected. The skin was closed with 4-0 Monocryl suture and Dermabond. At the end of the procedure, all counts were correct. The patient tolerated the procedure well. The patient was extubated and taken to the PACU in stable condition.
[2024-05-23] MEDS ORDERED: TIRZEPATIDE 7.5 MG/0.5 ML SQ SCH (10:00)
== END 2024-05-18 11:32 | disposition home or self-care (01) ==
LOC: SDC 16:30 → ED 16:45 → UNDOADMOB 20:07 → MED SURG 20:07
PROVIDERS: ADMIT Internal Medicine; ATTEND Internal Medicine
DX: K35.80 Unspecified acute appendicitis (principal); I10 Essential (primary) hypertension; R10.31 Right lower quadrant pain; N83.202 Unspecified ovarian cyst, left side; K66.1 Hemoperitoneum; Z20.828 Contact with and (suspected) exposure to other viral communicable diseases; Z79.899 Other long term (current) drug therapy
CPT/HCPCS: 0241U; 36000; 36415; 44970; 74177; 80048; 80053; 81001; 81025; 83690; 85025; 96360; 96374; 96375; 99284; G0378; 99140; J1100; J1170; J1885; J2250; J2405; J2543; J2704; J3010; A9270-GY

== ENCOUNTER 2024-05-19 20:18 | Emergency (ER) | payer OTHER ==
[2024-05-19 22:02] VITALS: BP 148/93; TEMP 97.3; O2SAT 100
--- NOTE | 2024-05-19 22:24 | ERPHSYRPT ---
- History of Present Illness Time Seen by Provider: 05/19/24 22:00 Source: patient Exam Limitations: no limitations Patient Subjective Stated Complaint: pt is concerned that her incision sites are infected Triage Nursing Assessment: pt ambulatory to bed by self with steady gait, pt alert and oriented x3, pt is concerned that her incision sites are infected. pt has an appendectomy on friday and pt states she noticed yellow drainage from her incision site yesterday. upon assesment surgical glue intact, no redness, swelling, or drainage noted. Physician History: 23-year-old female 2 days status post laparoscopic appendectomy presents to our ED with concerns for possible infection at the trocar site. Patient reported observing a yellowish drainage. Otherwise no other complaints. No fever no tenderness no redness no systemic manifestations of infection. Patient otherwise well. She voices no other complaints or concerns at this time. Portions of this note were created with voice recognition technology. There may be grammatical, spelling, punctuation or sound alike errors Timing/Duration: today Severity: moderate Modifying Factors: Improves With: nothing Associated Symptoms: denies symptoms Allergies/Adverse Reactions: No Known Drug Allergies Allergy (Verified 05/19/24 21:55) Home Medications: Enalapril Maleate [Vasotec] 5 mg PO HS 05/17/24 [History] Fluoxetine HCl [Prozac] 20 mg PO HS 05/17/24 [History] Norgestimate-Ethinyl Estradiol [Tri-Estarylla Tablet] 1 tab PO HS 05/17/24 [History] Tirzepatide [Zepbound] 7.5 mg SQ WEEKLY 05/17/24 [History] Hx Tetanus, Diphtheria Vaccination/Date Given: Yes Hx Influenza Vaccination/Date Given: Yes Hx Pneumococcal Vaccination/Date Given: No Immunizations Up to Date: Yes Travel Risk - International Travel Have you traveled outside of the country in past 3 weeks: No - Emerging Infectious Disease Are you exhibiting symptoms associated with any current EIDs: No Symptoms: Diarrhea, Vomitting Comment: at home + for COVID - Review of Systems Constitutional: No Symptoms, No Fever, No Chills Eyes: No Symptoms Ears, Nose, & Throat: No Symptoms Respiratory: No Symptoms, No Cough, No Dyspnea Cardiac: No Symptoms, No Chest Pain, No Edema, No Syncope Abdominal/Gastrointestinal: No Symptoms, No Abdominal Pain, No Nausea, No Vomiting, No Diarrhea Genitourinary Symptoms: No Symptoms, No Dysuria Musculoskeletal: No Symptoms, No Back Pain, No Neck Pain Skin: No Symptoms, No Rash Neurological: No Symptoms, No Dizziness, No Focal Weakness, No Sensory Changes Psychological: No Symptoms Endocrine: No Symptoms Hematologic/Lymphatic: No Symptoms Immunological/Allergic: No Symptoms All Other Systems: Reviewed and Negative - Past Medical History Pertinent Past Medical History: Yes Neurological History: No Pertinent History ENT History: No Pertinent History Cardiac History: Hypertension Respiratory History: No Pertinent History Endocrine Medical History: No Pertinent History Musculoskeletal History: No Pertinent History GI Medical History: Gallbladder Disease History: No Pertinent History Psycho-Social History: Depression Female Reproductive Disorders: Other Other Medical History: ovarian cysts - Past Surgical History Past Surgical History: Yes Neuro Surgical History: No Pertinent History Cardiac: No Pertinent History Respiratory: No Pertinent History Gastrointestinal: Appendectomy, Cholecystectomy Genitourinary: No Pertinent History Musculoskeletal: No Pertinent History Female Surgical History: No Pertinent History Other Surgical History: wisdom teeth - Female History Hx Last Menstrual Period: 04/19/24 Hx Now: No - Social History Smoking Status: Never smoker Exposure to second hand smoke: No Drug Use: none - Social Determinants of Health Will the patient participate in the screening: Declined to provide - Nursing Vital Signs Nursing Vital Signs: Initial Vital Signs Temperature 97.3 F 05/19/24 21:57 Pulse Rate 87 05/19/24 21:57 Respiratory Rate 18 05/19/24 21:57 Blood Pressure 148/93 05/19/24 21:57 O2 Sat by Pulse Oximetry 100 05/19/24 21:57 Pain Scale Pain Intensity 3 - Physical Exam General Appearance: no apparent distress, alert Eye Exam: PERRL/EOMI, eyes nml inspection Ears, Nose, Throat Exam: normal ENT inspection, pharynx normal, moist mucous membranes Neck Exam: normal inspection, full range of motion Respiratory Exam: normal breath sounds, lungs clear, airway intact, No respi ratory distress Cardiovascular Exam: regular rate/rhythm, normal heart sounds, normal peripheral pulses Gastrointestinal/Abdomen Exam: soft, normal bowel sounds, No tenderness, No mass Back Exam: normal inspection, normal range of motion, No CVA tenderness, No vertebral tenderness Extremity Exam: normal inspection, normal range of motion, pelvis stable Neurologic Exam: alert, oriented x 3, cooperative, normal mood/affect, sensation nml, No motor deficits Skin Exam: normal color, warm, dry, other (Postsurgical wound is healing well. No drainage. No redness no swelling no tenderness. No signs of infection. No indication for workup or antibiotics. ), No rash Lymphatic Exam: No adenopathy SpO2 Interpretation: normal SpO2: 100 O2 Delivery: Room Air - Course Nursing assessment & vital signs reviewed: Yes - Progress Progress: improved Progress Note: 23-year-old female presents the emergency department for a wound check. The postsurgical wound appears to be healing well. No indication for any treatment. Will discharge home. Patient has a follow-up appointment with her surgeon on the . Patient advised to call the office and get a recheck of her wound within the next 2 to 3 days. Portions of this note were created with voice recognition technology. There may be grammatical, spelling, punctuation or sound alike errors Complexity problem addressed is moderate acute complicated. No critical care time. Complex of data reviewed and analyzed is is none. No specialized testing ordered. Diagnosis made based on history and physical exam. Risk of complication and or risk of morbidity/mortality patient management is low. Vital stable. Time spent to discharge patient approximately 15 minutes. Plan of care established for shared decision making. No social determinants of health present to impede follow-up. Portions of this note were created with voice recognition technology. There may be grammatical, spelling, punctuation or sound alike errors 05/19/24 22:29 Counseled pt/family regarding: diagnosis, need for follow-up - Departure Departure Disposition: Home Clinical Impression: Visit for wound check Condition: Stable Critical Care Time: No Referrals: MENDY MARTIN NP [Primary Care Provider] - Follow up/PCP as directed Additional Instructions: Discharge/Care Plan SEAN PHAN was seen on 05/19/24 in the Emergency Room. The patient was counseled regarding Diagnosis,Lab results, Imaging studies, need for follow up and when to return to the Emergency Room. Prescriptions given: Discharge Note I have spoken with the patient and/or caregivers. I have explained the patient's condition, diagnosis and treatment plan based on the information available to me at this time. I have answered the patient's and/or caregiver's questions and addressed any concerns. The patient and/or caregivers have as good understanding of the patient's diagnosis, condition and treatment plan as can be expected at this point. The vital signs have been stable. The patient's condition is stable and appropriate for discharge from the emergency department. The patient will pursue further outpatient evaluation with the primary care physician or other designated or consulting physician as outlined in the discharge instructions. The patient and/or caregivers are agreeable to this plan of care and follow-up instructions have been explained in detail. The patient and/or caregivers have received these instruction. The patient/and or caregivers are aware that any significant change in condition or worsening of symptoms should prompt an immediate return to this or the closest emergency department or call 911.
[2024-05-19 22:39] VITALS: PULSE 78; RESP 16
== END 2024-05-19 22:48 | disposition home or self-care (01) ==
LOC: ED 20:18
DX: Z48.01 Encounter for change or removal of surgical wound dressing (principal); I10 Essential (primary) hypertension; Z79.85 Long-term (current) use of injectable non-insulin antidiabetic drugs; Z79.899 Other long term (current) drug therapy
CPT/HCPCS: 99281

== ENCOUNTER 2025-01-13 14:26 | Emergency (ER) | payer OTHER ==
[2025-01-13 14:47] VITALS: PULSE 98; RESP 18; TEMP 98; O2SAT 100
--- NOTE | 2025-01-13 15:00 | ERPHSYRPT ---
- History of Present Illness Time Seen by Provider: 01/13/25 14:42 Source: patient Exam Limitations: no limitations Patient Subjective Stated Complaint: C/O head injury. States she fell backward in her driveway attempting to close the garage door and hit the back of her head on the concrete. Denies loss of conciousness. Triage Nursing Assessment: Patient is alert and oriented. NO SOB. Skin tone normal. CHEEK WNL. heart tones 138-143. Physician History: 24-year-old 2 para 1 at 29 weeks gestation patient of Dr. Baker presented to the ER with a chief complaint of fall with head injury. Patient reports she was trying to close her garage door manually and the string broke, she fell backward on her hips and hit her head against the concrete. No loss of consciousness. She is complaining of minimal headache in the occipital area. Patient is very concerned about head injury. Denies any visual changes, nausea, difficulty speech, numbness tingling focal weakness. No difficulty movements of neck/no neck pain. No abdominal/pelvic cramping. No vaginal bleeding or discharge. No pain in the hip/low back. heart tones in 130s/140s Allergies/Adverse Reactions: No Known Drug Allergies Allergy (Verified 01/13/25 14:34) Home Medications: Enalapril Maleate [Vasotec] 5 mg PO HS 05/17/24 [History] Amlodipine Besylate [Norvasc] 2.5 mg PO DAILY 01/13/25 [History] Ferrous Sulfate 325 mg [Feosol 325 mg] 325 mg PO DAILY 01/13/25 [History] Pnv 119/Iron Fum/Folic Acid [ 19 Tablet] 1 tab PO DAILY 01/13/25 [History] Hx Tetanus, Diphtheria Vaccination/Date Given: Yes Hx Influenza Vaccination/Date Given: Yes Hx Pneumococcal Vaccination/Date Given: No Immunizations Up to Date: Yes Travel Risk - International Travel Have you traveled outside of the country in past 3 weeks: No - Emerging Infectious Disease Are you exhibiting symptoms associated with any current EIDs: No Symptoms: Diarrhea, Vomitting Comment: at home + for COVID - Review of Systems Constitutional: No Symptoms Ears, Nose, & Throat: No Symptoms Respiratory: No Symptoms Cardiac: No Symptoms Abdominal/Gastrointestinal: No Symptoms Genitourinary Symptoms: Musculoskeletal: No Symptoms Skin: No Symptoms Neurological: Headache Psychological: No Symptoms Endocrine: No Symptoms Hematologic/Lymphatic: No Symptoms - Past Medical History Pertinent Past Medical History: Yes Neurological History: No Pertinent History ENT History: No Pertinent History Cardiac History: Hypertension Respiratory History: No Pertinent History Endocrine Medical History: No Pertinent History Musculoskeletal History: No Pertinent History GI Medical History: Gallbladder Disease History: No Pertinent History Psycho-Social History: Depression Female Reproductive Disorders: Other Other Medical History: ovarian cysts - Past Surgical History Past Surgical History: Yes Neuro Surgical History: No Pertinent History Cardiac: No Pertinent History Respiratory: No Pertinent History Gastrointestinal: Appendectomy, Cholecystectomy Genitourinary: No Pertinent History Musculoskeletal: No Pertinent History Female Surgical History: No Pertinent History Other Surgical History: wisdom teeth - Female History Hx Last Menstrual Period: 04/19/24 Hx Now: Yes Gestational Age: 29 weeks - Social History Smoking Status: Never smoker Exposure to second hand smoke: No Drug Use: none - Social Determinants of Health Will the patient participate in the screening: Declined to provide - Nursing Vital Signs Nursing Vital Signs: Initial Vital Signs Temperature 98 F 01/13/25 14:30 Pulse Rate 98 H 01/13/25 14:30 Respiratory Rate 18 01/13/25 14:30 Blood Pressure 136/82 01/13/25 14:30 O2 Sat by Pulse Oximetry 100 01/13/25 14:30 Pain Scale Pain Intensity 3 - Cobalt Coma Score Best Eye Response (Cobalt): (4) open spontaneously Best Verbal Response (Cobalt): (5) oriented Best Motor Response (Cobalt): (6) obeys commands Cobalt Total: 15 - Physical Exam General Appearance: no apparent distress, alert Head Injury: contusions, swelling, tenderness (Posterior parietal/occipital area) Eye Exam: bilateral eye: normal inspection, PERRL, EOMI ENT Exam: airway nml, No evidence of ENT injury, No dental injury Neck Exam: supple, trachea midline, full range of motion, normal alignment, normal inspection Cardiovascular/Respiratory Exam: chest non-tender, normal breath sounds, regular rate/rhythm Gastrointestinal/Abdominal Exam: soft, non tender, no distention, no mass Pelvic Exam: not done Back Exam: normal inspection, normal range of motion Extremity Exam: non-tender, normal range of motion, normal inspection Mental Status Exam: alert, oriented x 3, 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 Exam: normal hearing, normal speech, PERRL Coordination/Gait Exam: normal finger to nose, normal gait, normal cerebellar function, negative Romberg's sign Motor/Sensory Exam: no motor deficit, no sensory deficit, no pronator drift DTR Exam: bicep (R): 2+, bicep (L): 2+, knee (R): 2+, knee (L): 2+ Skin Exam: normal color SpO2 Interpretation: normal SpO2: 100 O2 Delivery: Room Air Ordered Tests: Active Orders 24 hr Category Date Time Status HEAD WITHOUT CONTRAST [CT] Stat Exams 01/13/25 14:50 Completed - Progress Progress: improved, re-examined Progress Note: 01/13/25 16:23 24-year-old 2 para 1 at 29 weeks gestation is evaluated in the ER for ground-level mechanical fall with injury to the head. Patient has minimal headache currently but does have tenderness in the scalp in the posterior parietal/occipital area with no depressed in deformity. She is offered pain medication which she declined. She has a heart tone in 130s and 140s. No tenderness. No cramping, vaginal bleeding or discharge. She has a blood group A+ per her Discussed with patient in detail about low risk of internal brain injury with a negative neuroexam and CT would not be great yield but she was adamant about obtaining CT, went over risk of radiation and she agrees to go ahead with that. CT head is negative for any acute skull fracture, intracranial findings related to trauma. Discussed with Dr. Phillip, reviewed history, with patient being at 29 weeks, needs observation for at least 4 hours with monitoring. Recommended sending to labor and delivery for observation once she is cleared from the ER. I have shared the results of workup with patient and recommendations of the OB which she understands and agrees. Discussed with : Timothy Counseled pt/family regarding: diagnosis, need for follow-up, rad results Medical Desision Making - Diagnostic Testing Diagnostic test were ordered, analyzed, and reviewed by me: Yes Radiological Interpretation: Reviewed by me - Departure Departure Disposition: Home Clinical Impression: Scalp contusion, Ground-level fall, Third trimester Condition: Stable Critical Care Time: No Referrals: MENDY MARTIN, [facility] [Primary Care Provider, UNKNOWN] - Follow up with PCP 1 day Instructions: Concussion, Adult (DC), Head Injury in Adults (DC) Additional Instructions: Drink plenty of fluids. Take Tylenol as needed. Follow-up with your primary care for reevaluation. Go to labor and delivery now for monitoring of fetus. Return to ER for intractable headache, numbness tingling focal weakness, vomiting, abdominal/pelvic cramping/vaginal bleeding discharge etc.
[2025-01-13 15:11] VITALS: BP 143/84
--- NOTE | 2025-01-13 16:17 | XRAY ---
Indication: Headache following head injury/fall. Multiple contiguous axial images obtained through the head without contrast. Comparison: None Normal appearing brain parenchyma, ventricles, and bony calvarium. Visualized paranasal sinuses and mastoid air cells are clear. Impression: Normal CT head without contrast exam.
[2025-01-13 17:13] LABS: ABO TYPING A; Antibody Screen NEGATIVE (NEGATIVE); RH TYPING POSITIVE
== END 2025-01-13 17:18 | disposition home or self-care (01) ==
LOC: ED 14:26 → OB 17:16 → UNDOADMOB 17:16
DX: S00.03XA Contusion of scalp, initial encounter (principal); W01.0XXA Fall on same level from slipping, tripping and stumbling without subsequent striking against object, initial encounter; Z33.1 Pregnant state, incidental; Z79.899 Other long term (current) drug therapy
CPT/HCPCS: 36415; 70450; 86850; 86900; 86901; 99284

== ENCOUNTER 2025-01-13 17:22 | Observation (INO) | payer OTHER ==
[2025-01-13] MEDS ORDERED: TYLENOL 325 MG ONE (18:24)
[2025-01-13] MEDS: TYLENOL 325 MG PO PRN (18:26)
[2025-01-13 18:46] LABS: Amphetamine,Urine NEGATIVE (NEGATIVE); Barbiturate,Urine NEGATIVE (NEGATIVE); Benzodiazepine,Urine NEGATIVE (NEGATIVE); Cocaine,Urine NEGATIVE (NEGATIVE); Methadone,Urine NEGATIVE (NEGATIVE); Opiate,Urine NEGATIVE (NEGATIVE); PCP,Urine NEGATIVE (NEGATIVE); THC,Urine NEGATIVE (NEGATIVE)
[2025-01-13 20:06] VITALS: RESP 18; O2SAT 98
[2025-01-13 21:41] VITALS: BP 123/76; PULSE 88; TEMP 98.4
== END 2025-01-13 21:30 | disposition home or self-care (01) ==
LOC: OB 17:22
PROVIDERS: ADMIT Obstetrics & Gynecology; ATTEND Obstetrics & Gynecology
DX: Z34.83 Encounter for supervision of other normal pregnancy, third trimester (principal); Z3A.29 29 weeks gestation of pregnancy
CPT/HCPCS: 80307; G0378; G0379; A9270-GY